=== PATIENT | female | born 2000 | race Caucasian/White ===

== ENCOUNTER 2021-08-01 12:38 | Outpatient (REF) | payer MEDICAID, SELFPAY ==
--- NOTE | ~2021-08-01 | XR_ITS ---
EXAMINATION: XR THORACIC SPINE XR LUMBAR SPINE CLINICAL INFORMATION: Back pain. COMPARISON: None TECHNIQUE: 4 views thoracic spine, 3 views lumbar spine. FINDINGS: Vertebral heights are well maintained throughout the thoracic and lumbar spine as are the disc spaces. No paravertebral soft tissue swelling is seen. No fractures detected. XR/XR thoracic spine 2V IMPRESSION: Normal-appearing thoracic and lumbar spine.
--- NOTE | ~2021-08-01 | XR_ITS ---
EXAMINATION: XR THORACIC SPINE XR LUMBAR SPINE CLINICAL INFORMATION: Back pain. COMPARISON: None TECHNIQUE: 4 views thoracic spine, 3 views lumbar spine. FINDINGS: Vertebral heights are well maintained throughout the thoracic and lumbar spine as are the disc spaces. No paravertebral soft tissue swelling is seen. No fractures detected. XR/XR lumbar spine 2-3V IMPRESSION: Normal-appearing thoracic and lumbar spine.
== END 2021-08-01 12:39 | disposition home or self-care (01) ==
LOC: HO.XRAY 12:38
PROVIDERS: Absent Provider Family Medicine; PCP Family Medicine; Visit Provider Emergency Medicine
DX: M54.9 Dorsalgia, unspecified (principal); M54.5 Low back pain
CPT/HCPCS: 72070; 72100

== ENCOUNTER 2021-08-11 11:52 | Outpatient (REF) | payer MEDICAID, SELFPAY ==
--- NOTE | ~2021-08-11 | XR_ITS ---
EXAMINATION: XR KNEE, LEFT CLINICAL INFORMATION: Pain left knee COMPARISON: None TECHNIQUE: Four views of the left knee. FINDINGS: Bones and soft tissues are normal. No fracture or joint effusion. Alignment is anatomic. Joint spaces are well maintained. No abnormal soft tissue calcification. XR/XR knee LT 4V IMPRESSION: Unremarkable left knee exam.
== END 2021-08-11 11:53 | disposition home or self-care (01) ==
LOC: HO.XRAY 11:52
PROVIDERS: PCP Family Medicine; Visit Provider Family Medicine
DX: M25.562 Pain in left knee (principal)
CPT/HCPCS: 73564

== ENCOUNTER 2023-02-26 15:25 | Outpatient (REF) | payer MEDICAID, SELFPAY ==
--- NOTE | ~2023-02-26 | US_ITS ---
EXAMINATION: US PELVIS COMPLETE CLINICAL INFORMATION: Abnormal uterine bleeding COMPARISON: None TECHNIQUE: Transabdominal and transvaginal imaging was performed. FINDINGS: The uterus is of normal size and echogenicity measuring 9.4 x 3.3 x 5.7 cm. A regular homogeneous endometrium is identified measuring 1.4 cm. Nabothian cysts in the cervix. Both ovaries ovaries measure mildly symmetrically enlarged, with normal echotexture and echogenicity. The right measures 3.9 x 2.8 x 2.4 cm for a volume of 13.7 mL. The left measures 4.2 x 2.6 x 3.2 cm for a volume of 18.3 mL. There is no pelvic free fluid. US/US pelvic and transvaginal IMPRESSION: 1. Endometrium measures 1.4 cm in thickness. 2. Both ovaries measure mildly symmetrically enlarged. Findings could be seen in the setting of polycystic ovarian syndrome in the appropriate clinical setting.
== END 2023-02-26 15:26 | disposition home or self-care (01) ==
LOC: HO.US 15:25
PROVIDERS: PCP Family Medicine; Visit Provider Family Medicine
DX: N93.9 Abnormal uterine and vaginal bleeding, unspecified (principal)
CPT/HCPCS: 76830; 76856

== ENCOUNTER → 2023-09-04 14:58 | Outpatient (BNVA) | payer MEDICAID, SELFPAY | PROVIDERS: PCP Family Medicine; Visit Provider Physician Assistant ==

== ENCOUNTER → 2023-09-04 14:58 | Outpatient (BNVA) | payer MEDICAID, SELFPAY | PROVIDERS: PCP Family Medicine; Visit Provider Physician Assistant ==

== ENCOUNTER 2024-01-08 15:47 | Outpatient (REF) | payer MEDICAID, SELFPAY ==
[2024-01-08 17:50] LABS: Estimated Average Glucose 85 mg/dL; Hemoglobin A1c % 4.6 % (<6.0)
[2024-01-08 17:58] LABS: Alanine Aminotransferase 14 U/L (0-31); Albumin Level 4.4 g/dL (3.5-5.0); Alkaline Phosphatase 88 U/L (39-117); Anion Gap 11 (12-20); Aspartate Amino Transferase 17 U/L (5-31); Bilirubin Total 0.3 mg/dL (0.0-1.0); Blood Urea Nitrogen 13 mg/dL (9-16); Calcium 9.6 mg/dL (8.4-10.2); Carbon Dioxide 27 mmol/L (22-29); Chloride 105 mmol/L (96-108); Cholesterol 217 mg/dL (<200); Estimated Glomerular Filt Rate > 60; Glucose Random 83 mg/dL (60-115); HDL Cholesterol 39 mg/dL (>40); LDL Cholesterol Calculated 144 mg/dL (<100); Potassium 4.1 mmol/L (3.3-5.1); Sodium 139 mmol/L (135-145); Total Protein 7.8 g/dL (6.5-8.0); Triglycerides 171 mg/dL (<150)
[2024-01-08 18:18] LABS: Thyroid Stimulating Hormone 0.72 uIU/mL (0.32-4.0)
== END 2024-01-08 15:48 | disposition home or self-care (01) ==
LOC: HO.HHCL 15:47
PROVIDERS: Visit Provider Family Medicine
DX: Z00.00 Encounter for general adult medical examination without abnormal findings (principal)
CPT/HCPCS: 36415; 80053; 80061; 83036; 84443

== ENCOUNTER 2024-05-14 10:55 | Outpatient (REF) | payer MEDICAID, SELFPAY ==
[2024-05-14 13:23] LABS: Hematocrit 42.8 % (37.0-47.0); Hemoglobin 14.3 g/dl (12.0-16.0); Mean Corpuscular HGB Conc 33.4 g/dl (31.0-35.0); Mean Corpuscular Hemoglobin 29.9 pg (27.0-33.0); Mean Corpuscular Volume 89.5 fL (80.0-98.0); Mean Platelet Volume 10.7 fL (9.4-12.3); Platelet Count 282 X10*3/uL (160-400); Red Blood Count 4.78 X10*6/uL (4.20-5.50); Red Cell Distribution Width 12.1 % (11.0-16.0); White Blood Count 4.2 X10*3/uL (4.8-10.8)
[2024-05-14 13:41] LABS: Estimated Average Glucose 88 mg/dL; Hemoglobin A1c % 4.7 % (<6.0)
[2024-05-14 14:17] LABS: Alanine Aminotransferase 14 U/L (0-31); Albumin Level 3.8 g/dL (3.5-5.0); Alkaline Phosphatase 83 U/L (39-117); Anion Gap 10 (12-20); Aspartate Amino Transferase 15 U/L (5-31); Bilirubin Direct 0.1 mg/dL (0.0-0.5); Bilirubin Total 0.4 mg/dL (0.0-1.0); Blood Urea Nitrogen 10 mg/dL (9-16); Calcium 9.3 mg/dL (8.4-10.2); Carbon Dioxide 27 mmol/L (22-29); Chloride 107 mmol/L (96-108); Cholesterol 211 mg/dL (<200); Estimated Glomerular Filt Rate > 60; Free T4 (Free Thyroxine) 0.85 ng/dL (0.71-1.85); Glucose Random 80 mg/dL (60-115); HDL Cholesterol 38 mg/dL (>40); LDL Cholesterol Calculated 138 mg/dL (<100); Potassium 4.5 mmol/L (3.3-5.1); Sodium 139 mmol/L (135-145); Thyroid Stimulating Hormone 0.69 uIU/mL (0.32-4.0); Total Protein 6.5 g/dL (6.5-8.0); Triglycerides 177 mg/dL (<150); Vitamin D 25-OH Total 24.8 ng/mL (>30)
[2024-05-14 15:29] LABS: CT PCR NOT DETECTED (Not Detect.); NG PCR NOT DETECTED (Not Detect.)
[2024-05-15 08:24] LABS: Hepatitis A Antibody IgG REACTIVE (Nonreactive); ~Hepatitis A Antibody IgG 11.48 S/CO (0.00-0.99)
[2024-05-15 08:39] LABS: HBS Num1 > 1000.00 mIU/mL (0-7.99); HBc Num1 0.16 S/CO (0.00-0.79); HBsAGNum1 0.28 S/CO (0.00-0.99); HIV AB/AG Nonreactive (Nonreactive); Hepatitis B Core Antibody Nonreactive (Nonreactive); Hepatitis B Surface Antigen Negative (Negative); ~HepC Num1 0.16 S/CO (0.00-0.79); ~Hepatitis B Surface Antibody REACTIVE (Nonreactive); ~Hepatitis C Antibody Nonreactive (Nonreactive)
[2024-05-16 14:04] LABS: RPR Rapid Plasma Reagin NON-REACTIVE (NON-REACTIVE)
== END 2024-05-14 10:56 | disposition home or self-care (01) ==
LOC: HO.HHCL 10:55
PROVIDERS: Visit Provider Family Medicine
DX: Z00.00 Encounter for general adult medical examination without abnormal findings (principal); Z68.37 Body mass index [BMI] 37.0-37.9, adult
CPT/HCPCS: 36415; 80048; 80061; 80076; 82306; 83036; 84439; 84443; 85027; 86592; 86704; 86706; 86708; 86803; 87340; 87389; 87491; 87591